=== PATIENT | female | born 1990 | race Caucasian/White ===

== ENCOUNTER 2016-06-19 10:18 | Emergency (ER) ==
[2016-06-19 10:52] LABS: URINE SOURCE CLEAN CATCH
--- NOTE | 2016-06-19 11:02 | PROVIDER DOCUMENTATION ---
HPI-Female /OB/Breast - General Source: reports: patient - History of Present Illness-Female /OB Does patient report she is ?: No Location of complaint: reports: vaginal Radiation: reports: none Quality of Pain: reports: aching Severity in ED: reports: mild Onset/Duration: reports: 1 week ago Timing: reports: still present, getting worse Context/Activities at Onset: reports: light activity Vaginal Symptoms: reports: discharge, itching Vaginal Bleeding Amount: None Urinary Symptoms: reports: no symptoms Related Symptoms: reports: no symptoms Leakage of Fluid: none Sexual intercourse history: reports: Other (unsure) Contraception: reports: other (unsure) Modifying Factors: improves with: nothing Associated Symptoms: reports: muscle aches, other (fatigue). denies: anxiety, back/neck pain, chest pain, constipation, cough, diaphoresis, diarrhea, dizziness, fatigue, fever/chills, joint pain, loss of appetite, malaise, nausea , rash, seizure, sensory/motor loss, swelling/mass in abdomen, syncope, vomiting , weakness, trouble walking Similar Symptoms Previously?: Yes Recently seen or treated by another doctor?: No <Catalina Rios - Last Filed: 06/19/16 10:56> <Natasha Olmos - Last Filed: 06/19/16 11:37> - General Chief Complaint: Female Stated Complaint: FEMALE Time Seen by Provider: 06/19/16 10:40 Allergies/Adverse Reactions: Patient Allergies Allergy/AdvReac Type Severity Reaction Status Date / Time No Known Allergies Allergy Verified 07/06/12 15:29 Home Medications: Home Medication List Medication Instructions Recorded Confirmed Last Taken Type Fluconazole [Diflucan] 200 mg PO DAILY #3 tablet 06/19/16 Unknown Rx Nystatin Cream [Mycostatin Cream] 1 applicatn TOP TID #1 tube 06/19/16 Unknown Rx Sulfamethoxazole/Trimethoprim 1 each PO BID #14 tablet 06/19/16 Unknown Rx [Bactrim Ds Tablet] - History of Present Illness-Female /OB Nature of Presenting Problem: Pt is 25 y/o F presents to the ED with possible yeast infection. Pt states symptoms for one week. Pt states hx of UTIs and yeast infections. Pt states no improvement over the last week. Pt states lump to L side labia. Pt states tenderness to lump has worsened. Pt states rash at top of butt crack. Pt states has been applying nystatin cream. (Catalina Rios) Review of Systems - Adult - REVIEW OF SYSTEMS - ADULT Constitutional: reports: fatique. denies: chills, fever Eyes: denies: blurred vision, double vision Ears, Nose, Mouth & Throat: denies: ear pain, nose pain, throat pain Cardiovascular: reports: irregular heart rate (tachy). denies: chest pain, heart murmur Respiratory: denies: cough, shortness of breath, wheezing Gastrointestinal: denies: abdominal pain, diarrhea, nausea, vomiting Genitourinary: reports: discharge. denies: dysuria, hematuria Musculoskeletal: reports: muscle aches. denies: bone pain, joint pain, neck pain Integumentary: denies: hives, itching Neurological: denies: dizziness/vertigo, headache/migraines Psychiatric: reports: no symptoms reported Endocrine: reports: no symptoms reported, excessive sweating Allergic/Immunologic: reports: no symptoms reported All Other Systems: Reviewed and Negative <Catalina Rios - Last Filed: 06/19/16 10:56> Past History - Adult - PAST MEDICAL HISTORY-ADULT Review of Records: reports: Nursing Assessment Review, Medications Reviewed, Social history reviewed & non-contributory. Major Childhood Illnesses: reports: denies history Cardiovascular: reports: denies history Respiratory: reports: denies history Gastrointestinal: reports: denies history Obstetrical/Gynecological: reports: denies history Genitourinary: reports: denies history Musculoskeletal: reports: denies history Neurological: reports: denies history Endocrine/Immune: reports: denies history Other Conditions: reports: denies history - PRIOR SURGERIES/PROCEDURES Surgical/Procedure History: reports: - IMMUNIZATION STATUS Childhood Immunizations: See Nurse Assessment Flu Vaccine: See Nurse Assessment - FAMILY HISTORY Family History: reviewed, not pertinent - SOCIAL HISTORY Smoking: denies Substance Use: denies Living Situation: family <Catalina Rios - Last Filed: 06/19/16 10:56> Physical Exam-General - PHYSICAL EXAM-ADULT Initial Vital Signs Reviewed: Yes - CONSTITUTIONAL General Appearance: appears well, alert, no apparent distress - EYES Eyes: PERRL/EOMI, pink conjunctivae, fundi clear, no AV nicking - HEAD, EARS, NOSE, MOUTH & THROAT HENMT: normocephalic/atraumatic, moist mucous membranes, normal ENT inspection, TMs normal, pharynx normal - NECK Neck: non-tender, full range of motion, supple, normal inspection - RESPIRATORY Respiratory: chest non-tender, lungs clear, normal breath sounds, no pleuratic chest pain, no respiratory distress, no accessory muscle use - CARDIOVASCULAR Cardiovascular: normal peripheral pulses, no edema, no gallop, no JVD, no murmur , tachycardia - GASTROINTESTINAL (ABDOMEN) Abdominal Exam: normal bowel sounds, non tender, soft, no organomegaly, no pulsatile mass - LYMPHATIC Lymphatic: no adenopathy - MUSCULOSKELETAL Back Exam: normal inspection, no CVA tenderness, no vertebral tenderness Extremity: normal range of motion, non-tender, normal gait, normal inspection, no pedal edema, no calf tenderness, normal capillary refill - SKIN Integumentary: normal color, normal turgor, warm/dry - NEUROLOGIC Neurologic: grossly normal - PSYCHIATRIC Psych/Mental Status: normal mood/affect, oriented x 3 <Catalina Rios - Last Filed: 06/19/16 10:56> - GENITOURINARY Female Genitalia/Pelvic Exam: other (labial abscess in bartholin glands region on the right side. Right inguinal adenopathy. There is also a yeast infection present in the vaginal vault and along the gluteal cleft. Jeison Mejía as surgical supplies sterilizer) <Natasha Olmos - Last Filed: 06/19/16 11:37> Progress <Catalina Rios - Last Filed: 06/19/16 10:56> <Natasha Olmos - Last Filed: 06/19/16 11:37> - PLAN OF CARE/RESULTS Progress/Plan/Lab Results: Laboratory Tests 06/19/16 06/19/16 10:45 10:45 Urine Source CLEAN CATCH Urine Test NEGATIVE Orders Category Date Time Status Pelvic set up DIRECTED Care 06/19/16 10:41 Active CHLAMYDIA AND GC BY PCR URINE [AMARAL] Stat Lab 06/19/16 10:45 Received GRAM STAIN AND WET PREP [DIREX] Stat Lab 06/19/16 10:41 Ordered TEST-URINE [PREG] Stat Lab 06/19/16 10:[address] W/POSS RFLX CULT [URINALYSIS] Stat Lab 06/19/16 10:45 Results Vital Signs - 24 hr 06/19/16 10:24 Temperature 97.3 F L Pulse Rate 114 H Respiratory 18 Rate Blood Pressure 130/75 O2 Sat by Pulse 100 Oximetry (Catalina Rios) Vital Signs Temp Pulse Resp BP Pulse Ox 06/19/16 10:24 97.3 F L 114 H 18 130/75 100 No Known Allergies Allergy (Verified 07/06/12 15:29) Laboratory 06/19/16 06/19/16 10:45 10:45 Urine Source CLEAN CATCH Urine Color YELLOW Urine Clarity SL. CLOUDY A Urine pH 6.5 Ur Specific [place] 1.015 Urine Protein NEGATIVE Urine Ketones NEGATIVE Urine Blood 4+ Urine Nitrite NEGATIVE Urine Bilirubin NEGATIVE Urine Urobilinogen NORMAL Urine Microscopic RBC 10-20 A Urine WBC 2+ A Urine Microscopic WBC 10-20 A Ur Epithelial Cells >10 A Urine Bacteria 3+ Urine Glucose NEGATIVE Urine Test NEGATIVE Orders Category Date Time Status I and D Set up DIRECTED Care 06/19/16 11:04 Active Pelvic set up DIRECTED Care 06/19/16 10:41 Inactive CHLAMYDIA AND GC BY PCR URINE [AMARAL] Stat Lab 06/19/16 10:45 Received TEST-URINE [PREG] Stat Lab 06/19/16 10:[address] W/POSS RFLX CULT [URINALYSIS] Stat Lab 06/19/16 10:45 Completed URINE CULTURE [] Routine Lab 06/19/16 11:09 Ordered CefTRIAXONE [Rocephin] Med 06/19/16 11:06 Discontinued 1 gm IM NOW ONE Lidocaine 1% Pf [Xylocaine-Mpf 1%] Med 06/19/16 11:04 Discontinued 10 ml INJ NOW ONE Lidocaine 1% Pf [Xylocaine-Mpf 1%] Med 06/19/16 11:06 Discontinued 5 ml INJ NOW ONE (Natasha Olmos) Procedures - INCISION & DRAINAGE Site: labial abscess Abscess Type: Simple Prepped with: Hibiclens Anesthetic: 1%, Lidocaine/Xylocaine Volume of Anesthetic (ml's): 5 Blade Size: 11 Packing placed?: No Sterile Dressing Applied?: Yes Drainage: Small Amount (blood) Procedure Comment: patient toderated procedure well <Natasha Olmos - Last Filed: 06/19/16 11:37> Departure <Catalina Rios - Last Filed: 06/19/16 10:56> - Departure Time of Disposition Order: 11:35 Certified Medical Emergency: Emergent <Natasha Olmos - Last Filed: 06/19/16 11:37> - Departure DIAGNOSIS: Abscess of right genital labia, Yeast infection, Acute UTI Disposition: HOME 01 Condition: Stable Additional Instructions: Change dressing daily. Wash with betadine daily Follow up with the [facility] ED Follow Up Instructions: You have been treated by a care provider in the Emergency Department. These instructions are being provided to you so you can have an understanding of how to care for yourself upon discharge. Upon discharge from the Emergency Department, you are responsible for making arrangements for follow-up care by a physician of your choice. Take all prescribed medications as directed. Return to the Emergency Department immediately for any new or worsening symptoms. You may call the Physician Referral phone number at [phone] to obtain a list of Physicians who are taking new patients. Prescriptions: Sulfamethoxazole/Trimethoprim [Bactrim Ds Tablet] 1 each PO BID #14 tablet Fluconazole [Diflucan] 200 mg PO DAILY #3 tablet Nystatin Cream [Mycostatin Cream] 1 applicatn TOP TID #1 tube Referrals: None,PCP [Primary Care Provider] - Attestation - Scribe Verification/Attestation Scribe:: Catalina Rios Acting as Scribe for:: Natasha Olmos Scribe documention review:: This chart was documented by a scribe and accurately reflects the service the provider performed and the decisions made by the provider. <Catalina Rios - Last Filed: 06/19/16 10:56> Physician Attestation
[2016-06-19] MEDS ORDERED: XYLOCAINE-MPF 1% INJ ONE ×2 (11:04→11:06)
[2016-06-19] MEDS ORDERED: ROCEPHIN IM ONE (11:06)
[2016-06-19 11:08] LABS: BILIRUBIN URINE NEGATIVE (NEGATIVE); BLOOD URINE 4+ (NEGATIVE); CLARITY SL. CLOUDY (CLEAR); COLOR YELLOW; GLUCOSE URINE NEGATIVE (NEGATIVE); LEUKOCYTES URINE 2+ (NEGATIVE); NITRITE URINE NEGATIVE (NEGATIVE); PH URINE 6.5; PROTEIN URINE NEGATIVE (NEGATIVE); SP GRAVITY URINE 1.015; UROBILINOGEN URINE NORMAL
[2016-06-19 11:09] LABS: URINE CULTURE PL NEEDED? YES; URINE EPITHELIAL CELLS >10 /HPF (<10)
[2016-06-19 11:49] VITALS: BP 114/71
[2016-06-19] MEDS ORDERED: TORADOL PO ONE (11:57)
== END 2016-06-19 12:06 | disposition home or self-care (01) ==
LOC: P.ED 10:18
DX: N76.4 Abscess of vulva (principal); B37.9 Candidiasis, unspecified; N39.0 Urinary tract infection, site not specified; R00.0 Tachycardia, unspecified; R53.83 Other fatigue; M79.1 Myalgia; R21 Rash and other nonspecific skin eruption; R61 Generalized hyperhidrosis
CPT/HCPCS: 81001; 81025; 87088; 87491; 87591; 96372; J0696